=== PATIENT | male | born 1970 | race Caucasian/White ===

== ENCOUNTER 2019-02-09 09:41 | Emergency (ER) | payer OTHER ==
[2019-02-09 09:58] VITALS: PULSE 105; TEMP 99.7
--- NOTE | 2019-02-09 10:12 | ED ---
Wound/Laceration HPI - General Chief Complaint: Wound/Laceration Stated Complaint: IHS - lip lac Time Seen by Provider: 02/09/19 09:52 Source: patient, RN notes reviewed, old records reviewed Mode of arrival: ambulatory Limitations: no limitations - History of Present Illness Initial Comments: This patient's a 48-year-old male, he presents [facility] department today for IHS evaluation. Patient reports that last night he hit himself in the right lower lip with a wrench, causing laceration to the lower lip and a broken upper tooth #7. Patient reports he was planning to see a dentist today, but was told he had to be evaluated the IHS. Patient reports that the laceration had a green party closed throughout the evening. He reports it did go through the lip, and he has a abrasion appearance over the right lower lip at this time. He states that he started he had some healing and closure of the laceration as of this time. He reports he was doing some saltwater rinses throughout the day. He denies any redness or swelling. - Related Data Home Medications Medication Instructions Recorded Confirmed Ibuprofen [Motrin Ib] 400 mg PO Q6H PRN 02/09/19 02/09/19 Previous Rx's Medication Instructions Recorded Amoxicillin 500 mg PO Q8H #30 capsule 02/09/19 Allergies Allergy/AdvReac Type Severity Reaction Status Date / Time No Known Allergies Allergy Verified 02/09/19 10:05 Review of Systems ROS Statement: Those systems with pertinent positive or pertinent negative responses have been documented in the HPI. ROS Other: All systems not noted in ROS Statement are negative. Past Medical History Past Medical History: No Reported History History of Any Multi-Drug Resistant Organisms: None Reported Past Surgical History: No Surgical Hx Reported Past Psychological History: No Psychological Hx Reported Smoking Status: Never smoker Past Alcohol Use History: Occasional Past Drug Use History: None Reported General Exam - General Exam Comments Initial Comments: 48-year-old male. Alert and oriented. No significant distress. Limitations: no limitations Head exam: Present: atraumatic, normocephalic, normal inspection Eye exam: Present: normal appearance, PERRL, EOMI. Absent: scleral icterus, conjunctival injection, periorbital swelling ENT exam: Present: normal exam, mucous membranes moist, other (Patient is a 2 cm abrasion over the right lower lip. Patient has an intraoral laceration is closed at this time.) Neck exam: Present: normal inspection. Absent: tenderness, meningismus, lymphadenopathy Respiratory exam: Present: normal lung sounds bilaterally. Absent: respiratory distress, wheezes, rales, rhonchi, stridor Cardiovascular Exam: Present: regular rate, normal rhythm, normal heart sounds. Absent: systolic murmur, diastolic murmur, rubs, gallop, clicks GI/Abdominal exam: Present: soft, normal bowel sounds. Absent: distended, tenderness, guarding, rebound, rigid Extremities exam: Present: normal inspection, full ROM, normal capillary refill. Absent: tenderness, pedal edema, joint swelling, calf tenderness Back exam: Present: normal inspection Psychiatric exam: Present: normal affect, normal mood Course Vital Signs 02/09/19 02/09/19 09:44 09:46 Temperature 98.5 F 99.7 F H Pulse Rate 109 H 105 H Respiratory 20 16 Rate Blood Pressure 194/89 172/107 O2 Sat by Pulse 99 98 Oximetry Medical Decision Making - Medical Decision Making Patient is a 40-year-old male presents today for her IHS evaluation 1 day post lip laceration. He had his lip and broke his tooth #7 on a wrench. Patient is over 24 hours from the lip laceration occurring. He reports that his employer told him to be evaluated for a chest. At this time the laceration is closed, intraoral laceration does have somewhat of a flap appearance but is closed at this time. I he states he'll not have any stitches. I discussed this is an appropriate with a delayed closure as well. Patient was informed he should've came laceration first occurred. Patient will be placed on antibiotics. He states they have an appointment with the dentist in regards to the broken tooth #7. All questions were answered and return parameters were discussed.\\\\ Patient is noted to be hypertensive, blood pressure 170/107. Denies any symptoms associated with hypertension including chest pain or shortness of breath. I discussed the Patient needs to follow-up with primary care doctor in regards to managing blood pressure. On final check it did go down. Disposition Clinical Impression: Lip laceration, Episode of hypertension Disposition: HOME SELF-CARE Condition: Good Instructions (If sedation given, give patient instructions): Facial Laceration (ED) Additional Instructions: Patient should use salt water and Listerine rinses. Patient sure that the outer laceration status clean. Take antibiotics as prescribed. Follow-up with dentist. Follow-up with primary care physician in regards to blood pressure. Prescriptions: Amoxicillin 500 mg PO Q8H #30 capsule Is patient prescribed a controlled substance at d/c from ED?: No Referrals: None,Stated [Primary Care Provider] - 1-2 days Vickie Anderson MD [STAFF PHYSICIAN] - 1-2 days Roddy Hoff MD [STAFF PHYSICIAN] - 1-2 days Time of Disposition: 10:18
[2019-02-09] MEDS ORDERED: cloNIDine HCL 0.1 MG TAB PO STA (10:19)
[2019-02-09 11:02] VITALS: BP 172/102; RESP 18
== END 2019-02-09 11:02 | disposition home or self-care (01) ==
LOC: EC 09:41
DX: S01.511A Laceration without foreign body of lip, initial encounter (principal); I10 Essential (primary) hypertension; S02.5XXA Fracture of tooth (traumatic), initial encounter for closed fracture; S01.512A Laceration without foreign body of oral cavity, initial encounter; W22.8XXA Striking against or struck by other objects, initial encounter; Y92.69 Other specified industrial and construction area as the place of occurrence of the external cause; Y99.0 Civilian activity done for income or pay
CPT/HCPCS: 99283